=== PATIENT | female | born 1985 | race Hispanic/Latino ===

== ENCOUNTER 2021-10-10 08:40 | Outpatient (CLI) | payer BC | END 2021-10-10 08:41 | disposition home or self-care (01) | LOC: CSHCT 08:40 | PROVIDERS: ATTEND Otolaryngology | DX: H92.11 Otorrhea, right ear (principal); H72.91 Unspecified perforation of tympanic membrane, right ear; H73.91 Unspecified disorder of tympanic membrane, right ear; H74.91 Unspecified disorder of right middle ear and mastoid | CPT/HCPCS: 70480 ==